=== PATIENT | female | born 1985 | race Hispanic/Latino ===

== ENCOUNTER 2017-10-09 06:00 | Inpatient (IN) | payer OTHER ==
[2017-10-09 06:24] VITALS: BMI 35.1
[2017-10-09] MEDS ORDERED: Bupivacaine 0.75% 13.4 ML, fentaNYL Citrate/PF 400 MCG in Sodium Chloride 0.9% 78.6 ML EPIDURAL SCH (06:45)
[2017-10-09] MEDS ORDERED: Ondansetron HCl/PF 4 MG/2 ML Vial IVP PRN (06:53)
[2017-10-09] MEDS ORDERED: Promethazine HCl 25 MG/ML VIAL IM PRN (06:53)
[2017-10-09] MEDS ORDERED: Lactated Ringer's 1,000 ML IV SCH (06:53)
[2017-10-09] MEDS ORDERED: NS / Oxytocin 40 units/1000ml 1,000 ML IV SCH ×3 (07:00→10:09)
[2017-10-09] MEDS ORDERED: Lidocaine 1% (PF) 30 ML VIAL SC PRN (07:00)
[2017-10-09] MEDS ORDERED: Bupivacaine PF 0.5% 20 ML, fentaNYL Citrate/PF 400 MCG in Sodium Chloride 0.9% 72 ML FS SCH (07:00)
[2017-10-09] MEDS ORDERED: NS w/ Oxytocin 10 units 500 ML IV SCH ×2 (07:00)
[2017-10-09 07:28] LABS: Hemoglobin 11.3 g/dL (12.0-16.0); Mean Corpuscular HGB CONC 33.1 g/dL (32.0-36.0); Mean Corpuscular Hemoglobin 23.2 pg (27.0-31.0); Mean Corpuscular Volume 70.2 fl (81.0-99.0); Mean Platelet Volume 11.6 fL (7.4-10.4); Platelet Count 205 thou/uL (130-400); RBC Distribution Width 19.4 % (11.5-14.5); Red Blood Cell (RBC) Count 4.86 mill/uL (4.20-5.40)
--- NOTE | 2017-10-09 07:51 | PDOC.LDHP ---
Labor and Delivery H&P Chief complaint: contractions HPI: 32yo at 38w with painful ctx. No LOF VB Current gestational age (weeks): 38 Dating criteria: last menstrual period Grav: 5 Para: 4 Current complications: none Abnormal US findings: No Past Medical History: denies Current medications: pre- vitamins Previous surgical history: none Allergies/Adverse Reactions: Allergies Allergy/AdvReac Type Severity Reaction Status Date / Time No Known Drug Allergies Allergy Verified 10/09/17 06:40 Social history: none - Physical Exam Vital signs reviewed and normal: yes General: NAD Heart: RRR Lungs: CTAB Abdomen: gravid Extremeties: no edema FHT: category 1 [place] contractions every: 3min - Vaginal Exam cm dilated: 10 Effacement: 100% Station: 2+ - OB Labs RH: positive Antibody Screen: negative HIV: negative RPR: negative HEPSAg: negative 1 hour GCT: negative GBS: negative Urine drug screen: not done Rubella: immune - Assessment L&D Assessment: term patient in labor - Plan Plan: admit to L&D, labor augmentation if indicated, informed consent obtained, anesthesia consult for pain management
--- NOTE | 2017-10-09 07:52 | PDOC.OPDEL ---
OB Operative/Delivery Note Delivery Dr/Surgeon: Reena Assist: n/a Pre-Delivery Diagnosis: active labor Procedure/Post Delivery Dx: spontaneous vaginal delivery Weeks gestation: 38 Anesthesia: none - Findings A Sex: male - 1 min: 9 - 5 min: 9 - Additional Findings/Plan Placenta delivered: spontaneous Repaired Obstetrical Laceration: none Estimated blood loss: 100 Post delivery plan: routine recovery
[2017-10-09 08:07] LABS: Hep B Surf Ag Non-Reactive S/CO (NonReactive); Syphilis Antibody Nonreactive (Nonreactive); Syphilis Antibody Index 0.02 S/CO (<1.00 Non-Reactive)
[2017-10-09] MEDS ORDERED: Carboprost 250 MCG/ML AMP IM PRN (08:45)
[2017-10-09] MEDS ORDERED: Ibuprofen 800 MG TAB PO PRN (08:45)
[2017-10-09] MEDS ORDERED: HYDROcodone/Acetaminophen 5/325 mg Tablet PO PRN ×3 (08:45→10:09)
[2017-10-09] MEDS ORDERED: Diphenoxylate HCl/Atropine Tablet PO PRN (08:45)
[2017-10-09] MEDS ORDERED: Methylergonovine 0.2 MG/ML VIAL IM PRN (08:45)
[2017-10-09] MEDS ORDERED: Misoprostol 200 MCG TAB RC PRN (08:45)
[2017-10-09] MEDS ORDERED: Acetaminophen/Codeine 30-300mg Tablet PO PRN ×2 (08:45)
[2017-10-09] MEDS: HYDROcodone/Acetaminophen 5/325 mg Tablet PO PRN ×2 (08:46→15:01)
[2017-10-09] MEDS ORDERED: Prenatal Vitamin 1 TAB PO SCH (10:09)
[2017-10-09] MEDS ORDERED: Benzocaine/Menthol 20-0.5% 60 ML CAN TOP PRN (10:09)
[2017-10-09] MEDS ORDERED: Docusate Calcium (SURFAK) 240 MG CAP PO SCH (10:09)
[2017-10-09] MEDS ORDERED: Bisacodyl 10 MG SUPP PR PRN (10:09)
[2017-10-09] MEDS ORDERED: Adacel (T-DAP) 0.5 ML VIAL IM ONE (10:09)
[2017-10-09] MEDS ORDERED: Milk Of Magnesia 30 ML UDCUP PO PRN (10:09)
[2017-10-09] MEDS ORDERED: Ferrous Sulfate 325 MG TAB PO SCH (10:09)
[2017-10-09] MEDS ORDERED: Preparation H Ointment 28 GM TUBE PR PRN (10:09)
[2017-10-09] MEDS ORDERED: Lanolin Ointment 7 GM TUBE TOP PRN (10:09)
[2017-10-09] MEDS ORDERED: diphenhydrAMINE 25 MG CAP PO PRN (10:09)
--- NOTE | 2017-10-09 11:43 | PDOC.EVN ---
Event Note - Event Note Event Note: CTSP for bleeding. Bimanual shows firm uterus below umbilicus and no clots in KING. BP= 111/57, P= 61. Pit drip running. Cytotec 800 mg DE ordered and given. Dr. Valles notified. Observe closely.
[2017-10-09] MEDS ORDERED: Ibuprofen 800 MG TAB PO SCH ×2 (14:00→17:00)
[2017-10-09] MEDS: Ferrous Sulfate 325 MG TAB PO SCH (17:32)
[2017-10-09] MEDS: Docusate Calcium (SURFAK) 240 MG CAP PO SCH (20:20)
[2017-10-09] MEDS: Ibuprofen 800 MG TAB PO SCH ×3 (22:44→23:30)
[2017-10-10 05:37] VITALS: TEMP 98.3
[2017-10-10] MEDS: Ibuprofen 800 MG TAB PO SCH ×2 (06:11→14:40)
[2017-10-10 07:55] VITALS: BP 98/53
[2017-10-10] MEDS: Docusate Calcium (SURFAK) 240 MG CAP PO SCH (08:15)
[2017-10-10] MEDS: Ferrous Sulfate 325 MG TAB PO SCH (08:15)
[2017-10-10] MEDS ORDERED: Prenatal Vitamin 1 TAB PO SCH (09:00)
--- NOTE | 2017-10-10 09:16 | PDOC.PP ---
Post Progress Note Post Day #: 1 Subjective: doing well, desires DC home today if baby DC, nursing, minimal lochia PO intake tolerated: yes Flatus: yes Ambulation: yes Vital Signs (12 hours) Temp Pulse Resp BP BP 10/10/17 07:54 98.3 F 79 20 98/53 L 10/10/17 07:45 98.3 F 79 20 10/10/17 05:15 98.3 F 78 18 108/55 L 10/09/17 23:43 98.6 F 67 20 108/55 L Weight Weight 186 lb - Physical Examination General: NAD Respiratory: non-labored breathing Abdominal: no distention Fundus firm & at: below umb Extremities: negative homans (B) Skin: no rash Neurological: no gross focal deficits Psychiatric: A&Ox3, normal affect Result Diagrams: 10/09/17 07:05 Additional Labs: Post Labs Blood Type A POSITIVE 10/09/17 07:05 Hep Bs Antigen Non-Reactive S/CO (NonReactive) 10/09/17 07:05 (1) Vaginal delivery Code(s): O80 - ENCOUNTER FOR FULL-TERM UNCOMPLICATED DELIVERY Status: Acute - Assessment/Plan PPD1, doing well, desires DC home today.
== END 2017-10-10 15:20 | disposition home or self-care (01) | DRG 775 ==
LOC: L&D/OP 06:00 → L&D 06:32 → 3SW 10:01
PROVIDERS: ADMIT Student in an Organized Health Care Education/Training Program; ATTEND Student in an Organized Health Care Education/Training Program
PROC: 10E0XZZ Delivery of Products of Conception, External Approach (ICD-10-PCS; principal; 2017-10-09)
DX: O80 Encounter for full-term uncomplicated delivery (principal); Z37.0 Single live birth; Z3A.38 38 weeks gestation of pregnancy
CPT/HCPCS: 85027; 86780; 86850; 86900; 86901; 87340; 99285; A4216; J3010; J7050